=== PATIENT | female | born 1955 | race Caucasian/White ===

== ENCOUNTER 2017-03-19 09:58 | Day surgery (SDC) | payer OTHER ==
--- NOTE | 2017-03-13 11:22 | HP ---
Admitting History and Physical - Primary Care Physician PCP: Christi La - Admission Chief Complaint: Left breast LCIS and atypia History of Present Illness: 62 year old postmenapausal female with screening mammogram showing left breast calcifications 500-600 region. Left breast sterotactic core biopsy 02/2017 showed LCIS and atypia. Needs to be excised. History Source: Patient Limitations to Obtaining History: No Limitations - Past Medical History Cardiovascular: Yes: Hyperlipdemia Gastrointestinal: Yes: GERD Endocrine: Yes: Diabetes Mellitus - Smoking History Smoking history: Former smoker Have you smoked in the past 12 months: Yes - Alcohol/Substance Use Hx Alcohol Use: No Home Medications - Allergies Allergies/Adverse Reactions: Allergies Allergy/AdvReac Type Severity Reaction Status Date / Time No Known Allergies Allergy Verified 03/13/17 11:38 - Home Medications Home Medications (free text): atorvastatin,metformin,bupropion, pantozole Family Disease History - Family Disease History Family History: Denies Physical Examination Constitutional: Yes: Well Nourished Breast(s): Yes: Other (symmetrical no masses or adenopathy bilaterally posy bx changes left breast) Problem List - Problems (1) Lobular carcinoma in situ (LCIS) of left breast Code(s): D05.02 - LOBULAR CARCINOMA IN SITU OF LEFT BREAST Assessment/Plan Left breast wide excision with mammogram needle localization
--- NOTE | 2017-03-13 11:26 | PN ---
Progress Note, Physician Chief Complaint: left breast cancer S/P left breast wide excision sentenel node biopsy - Objective Constitutional: Yes: Well Nourished, No Distress, Obese Breast(s): Yes: Other (incision intact steristrips in place no drainage or infection left breast) Problem List - Problems (1) Breast cancer, left Code(s): C50.912 - MALIGNANT NEOPLASM OF UNSPECIFIED SITE OF LEFT FEMALE BREAST Qualifiers: Breast location: upper outer quadrant of breast Patient sex: female Assessment/Plan Ultram or tylenol prn discharge today follow up appt next week with Dr Emery
[2017-03-15 10:59] VITALS: BMI 33.1
[2017-03-19] MEDS ORDERED: LIDOCAINE HCL 1%, 10 MG/ML (20ML VIAL) ONE (13:10)
[2017-03-19] MEDS ORDERED: ISOSULFAN BLUE 10 MG/ML VIAL SQ ONE (13:18)
[2017-03-19] MEDS ORDERED: MIDAZOLAM HCL 2 MG/2 ML SINGLE DOSE VIAL ONE (13:19)
[2017-03-19] MEDS ORDERED: ONDANSETRON 4 MG/2 ML VIAL ONE (13:19)
[2017-03-19] MEDS ORDERED: DEXAMETHASONE SOD PHOSPHATE 4 MG/1 ML VIAL ONE (13:19)
[2017-03-19] MEDS ORDERED: ceFAZolin SODIUM 1 GM VIAL ONE (13:20)
[2017-03-19] MEDS ORDERED: SEVOFLURANE 250 ML BTL ONE (13:25)
[2017-03-19] MEDS ORDERED: DESFLURANE GAS 240 ML BOTTLE IH ONE (13:25)
[2017-03-19] MEDS ORDERED: ACETAMINOPHEN INJECTION 100 ML IVPB ONE (13:25)
[2017-03-19] MEDS ORDERED: PROPOFOL 20 ML ONE ×2 (13:27)
[2017-03-19] MEDS ORDERED: SUCCINYLCHOLINE CHLORIDE 200 MG/10 ML VIAL ONE (13:27)
[2017-03-19] MEDS ORDERED: SCOPOLAMINE HYDROBROMIDE 1 PATCH PATCH.TD72 ONE (13:31)
[2017-03-19] MEDS ORDERED: ONDANSETRON 4 MG/2 ML VIAL IVPUSH PRN ×2 (14:04→15:04)
[2017-03-19] MEDS ORDERED: KETOROLAC TROMETHAMINE 30 MG/1 ML VIAL IVPUSH PRN (14:04)
[2017-03-19] MEDS ORDERED: DEXTROSE 5%-0.45% SALINE 1,000 ML IV SCH (14:15)
[2017-03-19] MEDS ORDERED: BUPIVACAINE HCL/PF 0.5% (5MG/ML) 10 ML VIAL ONE (14:40)
[2017-03-19] MEDS ORDERED: ePHEDrine SULFATE 50 MG/1 ML AMPULE ONE (14:43)
[2017-03-19] MEDS ORDERED: BUPIVACAINE HCL/PF 0.5% (5MG/ML) 10 ML VIAL IJ ONE (14:50)
[2017-03-19] MEDS ORDERED: oxyCODONE HCL 5 MG TABLET PO PRN (15:04)
[2017-03-19] MEDS ORDERED: PROMETHAZINE HCL 25 MG/1 ML VIAL IVPUSH PRN (15:04)
[2017-03-19] MEDS ORDERED: LACTATED RINGERS SOLUTION 1,000 ML IV SCH (15:15)
[2017-03-19 16:13] VITALS: TEMP 97.6
[2017-03-19 17:01] VITALS: BP 145/82; PULSE 84
--- NOTE | 2017-03-20 11:34 | OP ---
DATE OF OPERATION: 03/19/2017 PREOPERATIVE DIAGNOSIS: Left breast atypia and lobular carcinoma in situ. POSTOPERATIVE DIAGNOSIS: Left breast atypia and lobular carcinoma in situ. PROCEDURE: Left mammographically-localized partial mastectomy. ANESTHESIA: General intubated. ATTENDING SURGEON: Christi La MD DESCRIPTION OF OPERATIVE PROCEDURE: Patient was made aware of the risks and benefits of the procedure and consented. Preoperatively, the patient went to the radiology suite where a needle was placed next to the index lesion. Patient was then placed in a supine position on the operating room table, and after general anesthesia was induced, the patient was intubated. The operative site was prepped and draped in the usual sterile fashion. A curvilinear incision was made adjacent to the wire and needle. Using electrocautery, thick skin flaps were made. The needle was withdrawn through the puncture site and a wire through the wound. The tissues around the wire were then sharply excised and submitted with a short suture superior, long suture lateral. Specimen radiograph confirmed the presence of the index lesion and clip and submitted to Pathology. The wound was copiously irrigated with normal saline. Hemostasis maintained by electrocautery. The wound was then closed with deep 3-0 Vicryl, followed by a running subcuticular 4-0 Monocryl. Steri-Strips and sterile bandage as well as a compression bra were then applied, and the patient, having tolerated the procedure well, was transferred to the recovery room in excellent condition. CHRSITI LA M.D. [id number]
--- NOTE | 2017-03-21 16:23 | PATH ---
Surgical Pathology Report Patient Name: ABHI NOONAN [facility]. Rec. #: [id number] /Age/Gender: 1955 (Age: 62) / F Account: [id number] Location: [facility] AMBUL[facility]ORY Taken: 03/19/2017 Received: 03/19/2017 Reported: 03/21/2017 Physicians: Christi La M.D. 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 CHANGES CONSISTENT WITH PRIOR BIOPSY SITE PRESENT. FOCAL CALCIFICATION PRESENT. NO RESIDUAL LOBULAR CARCINOMA IN SITU (LCIS) IDENTIFIED. Comment: See prior Slide Review [id number]. Electronically Signed Franky Flores M.D. Gross Description Received in formalin, labeled "left breast wide excision," is a 3.6 x 3.6 x 1.6 cm. groves-yellow, irregular, portion of fibroadipose tissue with a needle localization wire present. There is a short suture marking the superior aspect and a long suture marking the lateral aspect, per the surgeon. There is no skin or nipple present. The specimen is inked as follows: superior and lateral blue; inferior green; medial yellow; anterior red; deep black. The specimen is serially sectioned from superior to inferior. Sectioning reveals abundant dense, white, focally firm fibrous tissue. No definitive mass is identified. The specimen is entirely and sequentially submitted in 8 cassettes with the superior margin in cassette 1 and the inferior margin in cassette 8. Time to formalin fixation: 8 minutes Total formalin fixation time: Approximately 27 hours. 03/20/201703/20/2017
== END 2017-03-19 17:00 | disposition home or self-care (01) ==
LOC: FASU 09:58
PROVIDERS: ATTEND Surgery Surgical Oncology
PROC: 0HBU0ZZ Excision of Left Breast, Open Approach (ICD-10-PCS; principal; 2017-03-19 14:25)
DX: D05.02 Lobular carcinoma in situ of left breast (principal); N60.32 Fibrosclerosis of left breast; N64.89 Other specified disorders of breast; E78.5 Hyperlipidemia, unspecified; E11.9 Type 2 diabetes mellitus without complications; K21.9 Gastro-esophageal reflux disease without esophagitis; Z87.891 Personal history of nicotine dependence
CPT/HCPCS: 19281; 88307-TC; 94760